=== PATIENT | male | born 2005 | race Asian ===

== ENCOUNTER 2023-07-02 17:50 | Emergency (ER) | payer OTHER ==
[~2023-07-02] VITALS: Ht 185.4 cm; Wt 74.8 kg
[2023-07-02 17:55] VITALS: BP_SYST 136; PULSE 89; RESP 18; TEMP 97.7; O2SAT 97
[2023-07-02 21:22] VITALS: BP_SYST 99; PULSE 77; RESP 18; TEMP 97.5; O2SAT 98
== END 2023-07-02 21:22 | disposition home or self-care (01) ==
LOC: SED 17:50
DX: R07.89 Other chest pain (principal)
CPT/HCPCS: 71046; 93005; 99283